=== PATIENT | female | born 1965 | race African-American/Black ===

== ENCOUNTER → 2018-07-21 07:03 | Outpatient (CLI) | payer OTHER, SELFPAY ==
--- NOTE | 2018-07-21 07:08 | BI_ITS ---
MAMMOGRAPHY - BILATERAL SCREENING REASON FOR EXAM: Female, 53 years old. Routine annual screening examination. PERTINENT HISTORY: Non-contributory. TECHNIQUE: Digital bilateral breast fernando (3D mammographic acquisition) in the CC and MLO projections. 2-D mediolateral oblique (MLO) and craniocaudad (CC) views of both breasts were obtained. CAD: Full Field Digital Mammography with Computer Added Detection was performed. COMPARISON: Comparison is made with prior study dated September 13, 2016. FINDINGS: Breast Composition: The breasts are heterogeneously dense, which may obscure small masses. There are no dominant masses or suspicious calcifications. Stable scattered bilateral microcalcifications. No focal cluster is seen. No other significant abnormalities are identified. There has been no significant change since the prior study. BI/SCREENING MAMM (CAD), BILAT IMPRESSION: Stable bilateral screening mammogram. Yearly follow-up mammogram recommended. (A) ASSESSMENT CATEGORY: BIRADS Category 2: Benign. A letter regarding these results will be sent to the patient by the facility within 30 days. Approximately 10% of breast cancers are not detected by mammography. A normal mammogram should not delay biopsy of a clinically suspicious abnormality. [id number] Electronically Signed: Silvano Florence MD at 8:26 EST Tel [phone], Service support ,
--- OUTSIDE RECORDS SUMMARY | 2018-09-15 01:07 | XMS RPT_ITS ---
:1965 Author Organization OH[facility] Care Team Providers Name Role Phone Zahayderabi, Killian Primary Care Unavailable Zarrabi, Killian Admitting Unavailable Zarrabi, Killian Attending Unavailable Sulove, Saksham Attending Unavailable Zarrabi, Killian Primary Care Unavailable Sulove, Saksham Admitting Unavailable Sulove, Saksham Attending Unavailable Zarrabi, Killian Primary Care Unavailable Sulove, Saksham Attending Unavailable Zarrabi, Killian Primary Care Unavailable Sulove, Saksham Admitting Unavailable Sulove, Saksham Attending Unavailable Zarrabi, Killian Primary Care Unavailable Ahn, Mai D Admitting Unavailable Ahn, Mai D Attending Unavailable Zarrabi, Killian Primary Care Unavailable Ahn, Mai D Admitting Unavailable Ahn, Mai D Attending Unavailable Zarrabi, Killian Primary Care Unavailable ZARRABI, KILLIAN Attending Unavailable ZARRABI, KILLIAN Referring Unavailable ZARRABI, KILLIAN Primary Care Unavailable MAI SILVA Consulting Unavailable PROBLEMS PROBLEMS No Problem Records FoundPROCEDURES PROCEDURES No Procedure Records FoundRESULTS RESULTS SCREENING MAMM (CAD), Observed: 07/21/2018 Status: F Source: [place] [facility] BILAT 7:08 AM [facility] REPOSITORY [facility] Imaging Services [address] [place] [address] SCREENING MAMM (CAD), BILAT MR#: [id number] Acct: [id number] Name: NEVILLE LEWIS Rep #: [id number] : 1965 F 53 From: Silvano Florence MD PCP: KILLIAN PARMAR Status: REG CLI Study: SCREENING MAMM (CAD), BILAT Date of Exam: 07/21/18 Exam# [id number] Ordering Dr: Killian Parmar MAMMOGRAPHY - BILATERAL SCREENING REASON FOR EXAM: Female, 53 years old. Routine annual screening examination. PERTINENT HISTORY: Non-contributory. TECHNIQUE: Digital bilateral breast fernando (3D mammographic acquisition) in the CC and MLO projections. 2-D mediolateral oblique (MLO) and craniocaudad (CC) views of both breasts were obtained. CAD: Full Field Digital Mammography with Computer Added Detection was performed. COMPARISON: Comparison is made with prior study dated September 13, 2016. FINDINGS: Breast Composition: The breasts are heterogeneously dense, which may obscure small masses. There are no dominant masses or suspicious calcifications. Stable scattered bilateral microcalcifications. No focal cluster is seen. No other significant abnormalities are identified. There has been no significant change since the prior study. BI/SCREENING MAMM (CAD), BILAT IMPRESSION: Stable bilateral screening mammogram. Yearly follow-up mammogram recommended. (A) ASSESSMENT CATEGORY: BIRADS Category 2: Benign. A letter regarding these results will be sent to the patient by the facility within 30 days. Approximately 10% of breast cancers are not detected by mammography. A normal mammogram should not delay biopsy of a clinically suspicious abnormality. [id number] Electronically Signed: Silvano Florence MD at 8:26 EST Tel [phone], Service support , CC: KILLIAN PARMAR Behavioral Health Case Manager: Signed LIPASE LEVEL Collected: 09/02/2017 Status: F Source: [facility] 5:46 PM [facility] REPOSITORY Order Comment: Please call the plumbing engineering draftsperson MD, if the level is elevated. TYPE CODE TESTS RESULT OUT OF RANGE REFERENCE UNITS LAB [id number](LO 8-57 U/L INC) Normal Lipase Lvl 20 Performed By: #### [id number] #### JOSE [facility] [address] [place] [address] ALLERGIES ALLERGIES DATE TYPE / CODE NAME / CODE REACTION SEVERITY SOURCE Drug/[id number](SNO ciprofloxacin Yazidi MED CT) [facility] Repository Drug/[id number](SNO No Known Allergies Yazidi MED CT) [facility] Repository Miscellaneous Tape Yazidi Allergy/[id number]( [facility] SNOMED CT) Health System Repository Drug/[id number](SNO Neosporin Yazidi MED CT) [facility] System Repository ENCOUNTERS ENCOUNTERS ADMIT/DISCHARGE ACCOUNT NUMBER ADMITTING ENCOUNTER LOCATION SOURCE CLASS 07/21/2018 [id number] [facility] ding:[facility] Repository 07/20/2018/07/20/20 [id number] Mai Ahn [address] ding:[facility] Repository IMRoom: Room 5 07/12/2018/07/12/20 [id number] Mai Ahn [address] ding:[facility] Repository IMRoom: Room 6 09/13/2017/09/13/[id number] ding:[facility] Repository IM 09/09/2017/09/09/[id number] ding:[facility] Rep[facility] IM 09/02/2017/09/02/[id number] ding:.[facility] Repository 09/02/2017/09/02/[id number] ding:[facility] Rep[facility] IMRoom: Room 5 08/25/2017/08/25/[id number] ding:[facility] Repository PAYERS PAYERS ENCOUNTER GUARANTOR PAYER SUBSCRIBER SOURCE 07/21/2018 NEVILLE H Primary NEVILLE H Shana [id number] Insurance:[facility] LAMBRIGHTDOB: [facility] [address]Hlmpiv [id number], Number: Repository [place] [address]Sbn: [id number] Date:[id number] [address] () [address], [place] [address]TQ: 07/21/2018 Secondary NOT GIVENUNK Shana Insurance:SELF PAY [facility] Number: Effective Repository Date:2018-07-12 09/13/2017 NEVILLE Primary Insurance:[address] Yazidi LAMBRIGHTDOB: [facility] LAMBRIGHTDOB: [facility] Number: [id number] System CARDINAL Effective CARDINAL Repository [place], [place] Date:2017-09-02 [place], [place] [id number]: [id number] [id number]: Name:CD:[id number] O (HP) [address] ()Tel: [phone]: [phone] 09/09/2017 NEVILLE Primary Insurance:1500 [facility] LAMBRIGHTDOB: [facility] Number: [id number] System CARDINAL Effective CARDINAL Repository [place], [place] Date:2017-09-02 [place] [id number]: [id number]: Name:CD:[id number] O (HP) [address] ()Tel: [phone]: [phone] 09/02/2017 NEVILLE H Primary NEVILLE H Yazidi LAMBRIGHTDOB: [facility] HEALTHCAREPolicy [id number] System CARDINAL Number: Effective CARDINAL Repository [facility], [place] Date:2017-09-02 - [place] [id number]: [id number]: Name:CD:[id number] [address] (HP) [address]JVFNJRN, [place] (HP)Tel: [phone]: (WP) [phone] 09/02/2017 [facility] Insurance:[address] [place], [place] [address]B: [facility]: [facility] CAREPolicy Number: [id number] System CARDINAL Effective CARDINAL [facility] [place] [facility] [place] [id number]: [id number]: Name:CD:[id number] O (HP) [address]SGRCKXB, [place] (HP)Tel: [phone]: (WP) [phone] [facility]/2017 [facility]: [facility] HEALTHCAREPolic [id number] System CARDINAL Number: Effective CARDINAL Repository [facility] [place] Date:2016-09-24 [facility] [place] [id number]: [id number]: Name:CD:[id number] [address] (HP) [address]IPEZRKF, [place] (HP)Tel: [phone]: ([phone]
== END ==
PROVIDERS: Family Provider Internal Medicine; PCP Internal Medicine; Referring Provider Internal Medicine; Visit Provider Internal Medicine
DX: Z12.31 Encounter for screening mammogram for malignant neoplasm of breast (principal)
CPT/HCPCS: 77063; 77067

== ENCOUNTER → 2019-08-07 16:53 | Outpatient (CLI) | payer OTHER, SELFPAY ==
--- NOTE | 2019-08-07 16:56 | BI_ITS ---
MAMMOGRAPHY - BILATERAL SCREENING REASON FOR EXAM: Female, 54 years old. Routine annual screening examination. PERTINENT HISTORY: Non-contributory. TECHNIQUE: Digital bilateral breast stevie (3D mammographic acquisition) in the CC and MLO projections. 2-D mediolateral oblique (MLO) and craniocaudad (CC) views of both breasts were obtained. CAD: Full Field Digital Mammography with Computer Added Detection was performed. COMPARISON: Comparison is made with prior examination dated July 21, 2018. FINDINGS: Breast Composition: The breasts are heterogeneously dense, which may obscure small masses. There are no dominant masses or suspicious calcifications. Stable benign-appearing bilateral axillary lymph nodes. No other significant abnormalities are identified. There has been no significant change since the prior study. BI/SCREEN MAMM (CAD) W/STEVIE BILAT IMPRESSION: Stable bilateral screening mammogram. Yearly follow-up mammogram recommended. (A) ASSESSMENT CATEGORY: BIRADS Category 2: Benign. A letter regarding these results will be sent to the patient by the facility within 30 days. Approximately 10% of breast cancers are not detected by mammography. A normal mammogram should not delay biopsy of a clinically suspicious abnormality. [id number] Electronically Signed: Silvano Florence, at 8:36 EST , Service support ,
== END ==
PROVIDERS: Family Provider Internal Medicine; PCP Internal Medicine; Referring Provider Internal Medicine; Visit Provider Internal Medicine
DX: Z12.31 Encounter for screening mammogram for malignant neoplasm of breast (principal)
CPT/HCPCS: 77063; 77067